=== PATIENT | female | born 1955 | race Caucasian/White ===

== ENCOUNTER → 2017-05-08 | Outpatient (CLI) | payer MEDICARE ==
[~2017-05-08] MED LIST: HYDR-317 PO; HYDR-4309 PO; LEVO-3 PO; LEVO125T85 PO; LEVO137T23 PO; LOR5/325 PO; OMEP-137 PO; SIMV-49 PO; TER20I SUBQ
--- NOTE | 2017-05-08 16:34 | RADIOLOGY IMAGING REPORT ---
FACILITY: [facility] - [place] PATIENT NAME: Annabelle Clay : 1955 MR: [id number] V: [id number] EXAM DATE: ORDERING PHYSICIAN: BENITA HERNANDEZ TECHNOLOGIST: Location: [facility] [place] Patient: Annabelle Clay : 1955 Visit/Account:[id number] Date of Sevice: 05/08/2017 EXAMINATION: CT head without IV contrast HISTORY: Hydrocephalus. 3 previous brain surgeries, headaches and ringing in ears. COMPARISON: CT head from 12/24/2007. Brain MRI dated 07/25/2010 from [facility]. TECHNIQUE: Contiguous axial images were obtained from the skull base to the vertex without intraven ous contrast. Sagittal and coronal reformatted images are also submitted. One of the following dose optimization techniques was utilized in the performance of this exam: Autom ated exposure control; adjustment of the mA and/or kV according to the patient's size; or use of an i terative reconstruction technique. Specific details can be referenced in the facility's radiology C T exam operational policy. FINDINGS: Brain volume: Normal. Ventricles: There are bilateral posterior approach ventricular shunts which are unchanged in positio n. The right posterior approach ventricular shunt tip is in the atrium of the lateral ventricle. Ther e is dilatation of the right temporal horn and ventricular atrium with transependymal flow of CSF, ne w from prior exams. There is cystic enlargement of the right lateral ventricle centered above the atr ium, with a thin septation between the temporal horn and this cystic area. The cystic enlargement stefano sures 3.5 x 2.1 cm (sagittal image 44). This is new from previous CT and larger compared to prior MRI . Acute ischemic changes: None. Hemorrhage: No acute intracranial hemorrhage. Masses/edema: None. Snow-white: Small area of encephalomalacia in the left anterior frontal lobe is unchanged. White matter: Normal. Vessels: Mild atherosclerotic calcifications of the left carotid siphon. Extra-axial: 1.3 cm arachnoid cyst lateral to the right frontal lobe anteriorly is unchanged, with a djacent bony scalloping. Calvarium/scalp: Negative. Skull base/visualized face: Negative. Visualized sinuses/orbits: Negative. IMPRESSION: 1. Right posterior approach ventricular shunt is unchanged in position with the tip in the atrium of the lateral ventricle. However there is new entrapment of the right temporal horn and atrium, with tr ansependymal flow of CSF. This is suspicious for shunt malfunction. 2. 3.5 x 2.1 cm focal cystic enlargement above the atrium of the right lateral ventricle is suspiciou s for an acquired arachnoid cyst due to loculation in the ventricle. This is new from previous CT, an d is larger from previous MRI. 3. No acute hemorrhage or CT evidence of acute infarct. This report will be faxed to the office of BENITA HERNANDEZ at 05/08/2017 4:35 PM. Report Dictated By: Colleen Dyer MD at 05/08/2017 3:42 PM Report E-Signed By: Colleen Dyer MD at 05/08/2017 4:29 PM WSN:[email or web address]
== END ==
LOC: CT 01:35
PROVIDERS: ATTEND Neurological Surgery
DX: G93.89 Other specified disorders of brain (principal); G93.0 Cerebral cysts
CPT/HCPCS: 70450

== ENCOUNTER → 2018-09-11 | Outpatient (CLI) | payer MEDICARE ==
[~2018-09-11] MED LIST changes: -HYDR-4309 PO; +HYDR-653 PO
--- NOTE | 2018-09-11 13:48 | RADIOLOGY IMAGING REPORT ---
FACILITY: [facility] PATIENT NAME: Annabelle Clay : 1955 MR: [id number] V: [id number] EXAM DATE: ORDERING PHYSICIAN: DEV VAZQUEZ TECHNOLOGIST: Location: [facility] Patient: Annabelle Clay : 1955 Visit/Account:[id number] Date of Sevice: 09/11/2018 BONE DENSITY Additional Pertinent history: Osteoporosis screening COMPARISON STUDIES: 06/12/2010 FINDINGS: LUMBAR SPINE: The bone mineral density (BMD) measured from L1-L3 correlates with a Z-score of -0.7 and a T-score of -1.7 which is osteopenia as defined by the World Health Organization. The corresponding risk of frac ture in the lumbar spine is increased 3-4 times compared with a young adult reference population. Thi s value has increased by 2.7% since the prior study. More than 5% change is considered significant. HIP: Bone mineral density (BMD) measured in the left total hip correlates with a Z-score of -1.1 and a T- score of -1.9 which is osteopenia as defined by the World Health Organization. The corresponding risk of fracture in the hip is increased 3-4 times compared with a young adult reference population. Tota l hip value has decreased by 3.6% since the prior study. More than 5% change is considered significan t. Bone mineral density (BMD) measured in the left femoral neck region measures 0.77 g/cm2. IMPRESSION: 1. Lumbar spine: Osteopenia. No significant change. 2. Left hip: Osteopenia. Total hip value has shown no significant change. Left femoral neck: bone mineral density is 0.77 g/cm2 FRAX WHO Fracture Risk Assessment Tool link: http://www.andriy.ac.uk/FRAX/index.jsp The next DEXA scan of this patient should include the following sites: L1-L3 and left hip PLEASE NOTE: 1. The World Health Organization defines low BMD as follows: T-score Normal > -1 Osteopenia -1 to -2.5 Osteoporosis < -2.5 without fractures Established osteoporosis < -2.5 with fractures 2. In general, you may wish to consider: Diagnosis Treatment Follow-up DEXA Normal BMD Prevention 2-3 years Osteopenia Prevention/therapy 1-2 years Osteoporosis Therapy Yearly 3. Fracture risk estimated from the T-score is more accurate for vertebral fractures (often spontaneo us) than for hip fractures. Report Dictated By: Wilfredo Becerra MD at 09/11/2018 1:27 PM Report E-Signed By: Wilfredo Becerra MD at 09/11/2018 1:42 PM WSN:[id number]
== END ==
LOC: RAD 10:49
PROVIDERS: ATTEND Nurse Practitioner Family
DX: M85.89 Other specified disorders of bone density and structure, multiple sites (principal)
CPT/HCPCS: 77080